=== PATIENT | female | born 1990 | race African-American/Black ===

== ENCOUNTER 2017-11-05 12:35 | Emergency (ER) | payer SELFPAY ==
[2017-11-05] MEDS ORDERED: IBUPROFEN 800 MG TABLET PO ONE (14:40)
[2017-11-05] MEDS ORDERED: SILVER SULFADIAZINE 1% CREAM 25 GM TP ONE (14:41)
[2017-11-05] MEDS ORDERED: HYDROCODONE/ACETAMINOPHEN 5-325 MG TABLET PO ONE (14:41)
[2017-11-05] MEDS ORDERED: DIPH/PERTUSS(ACELL)/TETANUS VAC/PF 0.5 ML SYR (>=10YO) IM ONE (14:42)
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
[2017-11-05 16:16] VITALS: BP 112/59
== END 2017-11-05 16:15 | disposition home or self-care (01) ==
LOC: ER 12:35
DX: T24.212A Burn of second degree of left thigh, initial encounter (principal); X12.XXXA Contact with other hot fluids, initial encounter; Y93.89 Activity, other specified; F17.200 Nicotine dependence, unspecified, uncomplicated; Z23 Encounter for immunization
CPT/HCPCS: 90471; 90715; 99283